=== PATIENT | male | born 1975 | race Two or more races ===

== ENCOUNTER 2025-01-07 19:40 | Emergency (ER) | payer OTHER ==
[~2025-01-07] VITALS: Ht 182.9 cm; Wt 88.0 kg
[2025-01-07 19:52] VITALS: BP 159/100; PULSE 102; RESP 19; TEMP 36.8; O2SAT 99
== END 2025-01-07 21:31 | disposition left against medical advice (07) ==
LOC: ER 19:40
DX: M79.602 Pain in left arm (principal); Z53.21 Procedure and treatment not carried out due to patient leaving prior to being seen by health care provider